=== PATIENT | female | born 1955 ===

== ENCOUNTER 2017-10-20 07:58 | Emergency (ER) | payer MEDICARE, OTHER ==
[2017-10-20 07:58] VITALS: BMI 24.3
--- NOTE | 2017-10-20 09:02 | C.PDOC ---
History Of Present Illness 62-year-old female, presents to the emergency department with complaints of rib pain. Patient states she slipped and fell prior to arrival, injuring her left chest wall. Denies any numbness/weakness, neck or head injury, dizziness, or any other associated symptoms. No other complaints at this time. Time Seen by Provider: 10/20/17 08:07 Chief Complaint (Nursing): Rib Injury History Per: Patient History/Exam Limitations: no limitations Current Symptoms Are (Timing): Still Present Past Medical History Reviewed: Historical Data, Nursing Documentation, Vital Signs Vital Signs: Last Vital Signs Temp 97.6 F 10/20/17 10:30 Pulse 60 10/20/17 10:30 Resp 18 10/20/17 10:30 BP 121/69 10/20/17 10:30 Pulse Ox 97 10/20/17 10:30 - Medical History PMH: Arthritis, Asthma, HTN, Hypercholesterolemia Denies: Chronic Kidney Disease Family History: States: No Known Family Hx - Social History Hx Alcohol Use: No Hx Substance Use: No - Immunization History Hx Tetanus Toxoid Vaccination: No Hx Influenza Vaccination: No Hx Pneumococcal Vaccination: No Review Of Systems Constitutional: Negative for: Fever Cardiovascular: Positive for: Chest Pain Respiratory: Negative for: Shortness of Breath Gastrointestinal: Negative for: Nausea, Vomiting Musculoskeletal: Negative for: Back Pain Neurological: Negative for: Weakness, Numbness Physical Exam - Physical Exam Appears: Non-toxic, No Acute Distress Skin: Warm, Dry, No Rash Head: Atraumatic, Normacephalic Eye(s): bilateral: Normal Inspection, PERRL Nose: Normal Neck: Normal ROM Chest: Tenderness (left anterior ribs) Cardiovascular: Rhythm Regular, No Murmur Respiratory: Normal Breath Sounds, No Accessory Muscle Use, No Rales, No Rhonchi , No Stridor Extremity: Normal ROM Neurological/Psych: Oriented x3, Normal Speech ED Course And Treatment O2 Sat by Pulse Oximetry: 98 (on RA) Pulse Ox Interpretation: Normal - Radiology CXR: Interpreted by Me CXR Interpretation: Yes: No Acute Disease. No: Infiltrates, Pnemothorax Medical Decision Making Medical Decision Making: Plan: * CXR * Tramadol * Reassess and Disposition On re-exam, the patient reports improvement of symptoms. Lungs are CTA, heart is RRR, Abdomen is soft, non-tender and tolerating PO well. Pt is tolerating PO well. Follow up with the medical doctor/clinic within 3-5 days, Return if worsened. Disposition - Disposition Referrals: Edward Gallegos MD [Staff Provider] - Disposition: HOME/ ROUTINE Disposition Time: 09:59 Condition: GOOD Additional Instructions: Follow up with the medical doctor within 1-2 days. Return if worsened. Prescriptions: Ibuprofen [Motrin] 1 tab PO TID PRN #30 tab PRN Reason: Pain traMADol [Ultram] 50 mg PO Q6 PRN #20 tab PRN Reason: Pain Instructions: Rib Contusion (ED) Forms: [employer] [facility] ([employer]) - Clinical Impression Clinical Impression: Rib contusion - Scribe Statement The provider has reviewed the documentation as recorded by the Scribe (Yomi Euceda) All medical record entries made by the Scribe were at my direction and personally dictated by me. I have reviewed the chart and agree that the record accurately reflects my personal performance of the history, physical exam, medical decision making, and the department course for this patient. I have also personally directed, reviewed, and agree with the discharge instructions and disposition.
--- NOTE | 2017-10-20 09:36 | RAD ---
HISTORY: fall, chest injury COMPARISON: No prior. TECHNIQUE: Chest PA and lateral FINDINGS: LUNGS: No active pulmonary disease. PLEURA: No significant pleural effusion identified. No pneumothorax apparent. CARDIOVASCULAR: Normal. OSSEOUS STRUCTURES: Thoracic levoscoliosis peer VISUALIZED UPPER ABDOMEN: Normal. OTHER FINDINGS: None. IMPRESSION: No evidence of hemothorax/pneumothorax. Thoracic levoscoliosis incidentally noted
[2017-10-20 10:32] VITALS: BP 121/69; PULSE 60; RESP 18; TEMP 97.6
[2017-10-21 20:14] VITALS: O2SAT 98
== END 2017-10-20 10:32 | disposition home or self-care (01) ==
LOC: C.ER 07:58
DX: S20.212A Contusion of left front wall of thorax, initial encounter (principal); W01.0XXA Fall on same level from slipping, tripping and stumbling without subsequent striking against object, initial encounter; I10 Essential (primary) hypertension; E78.00 Pure hypercholesterolemia, unspecified

== ENCOUNTER 2019-01-25 09:33 | Outpatient (CLI) | payer MEDICARE, OTHER | END 2019-01-25 09:34 | disposition home or self-care (01) | LOC: C.CTH 09:33 | DX: R51 Headache (principal) ==